=== PATIENT | male | born 1965 | race Caucasian/White ===

== ENCOUNTER 2021-02-17 11:16 | Emergency (ER) | payer SELFPAY ==
[2021-02-17 12:08] VITALS: BP 150/68; PULSE 98; O2SAT 93
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
== END 2021-02-17 12:48 | disposition home or self-care (01) ==
LOC: ED 11:16
DX: Z04.1 Encounter for examination and observation following transport accident (principal); V43.52XA Car driver injured in collision with other type car in traffic accident, initial encounter; Y93.9 Activity, unspecified; Y92.9 Unspecified place or not applicable
CPT/HCPCS: 99285